=== PATIENT | female | born 1995 | race African-American/Black ===

== ENCOUNTER → 2017-01-19 | Outpatient (CLI) | payer OTHER | END | disposition home or self-care (01) | LOC: C.PAPS 16:00 | PROVIDERS: ATTEND Obstetrics & Gynecology | DX: Z12.4 Encounter for screening for malignant neoplasm of cervix (principal) ==

== ENCOUNTER → 2017-06-21 | Outpatient (CLI) | payer BC, OTHER ==
[2017-06-21 16:42] LABS: HEMATOCRIT 38.9 % (37-47); HEMOGLOBIN 13.1 g/dL (12.0-16.0)
== END | disposition home or self-care (01) ==
LOC: C.LAB 16:06
PROVIDERS: ATTEND Obstetrics & Gynecology
DX: N92.0 Excessive and frequent menstruation with regular cycle (principal)

== ENCOUNTER 2020-09-11 19:44 | Inpatient (IN) ==
[2020-09-11] MEDS ORDERED: LACTATED RINGER'S 1,000 ML IV PRN (20:09)
[2020-09-11] MEDS ORDERED: OXYTOCIN 30 UNITS/500 ML BAG IV PRN (20:09)
[2020-09-11 20:33] LABS: Hematocrit (blood only) 30.4 % (37-47); Hemoglobin 9.3 g/dL (12.0-16.0); Mean Corpuscular Hemoglobin 24.6 pg (25-34); Mean Corpuscular Hgb Conc 30.6 g/dL (32-36); Mean Corpuscular Volume 80.4 fL (80-100); Nucleated RBC # (auto) 0.07 K/uL (0-0); Nucleated RBC % (auto) 0.6 %; Platelet Count 212 K/uL (130-400); RDW Coefficient of Variation 15.5 % (11.5-14.5); RDW Standard Deviation 45.6 fL (36.4-46.3); Red Blood Count 3.78 M/uL (4.2-5.4); White Blood Count 12.72 K/uL (4.8-10.8)
[2020-09-11] MEDS ORDERED: SODIUM CHLORIDE 0.9% INJ 10 ML VIAL ONE (20:47)
[2020-09-11] MEDS ORDERED: BUPIVACAINE 0.25% 30 ML VIAL ONE (20:47)
[2020-09-11] MEDS ORDERED: ePHEDrine sulfate 50 MG/ML AMP ONE (20:47)
[2020-09-11] MEDS ORDERED: fentaNYL citrate 100 MCG/2 ML VIAL ONE (20:47)
[2020-09-11] MEDS ORDERED: fentaNYL 2MCG/ML ROPIVACAINE 1.25MG/ML 100 ML BAG EPI ONE (20:48)
--- NOTE | 2020-09-11 21:36 | Anesthesiology Consultation ---
Date of Service September 11, 2020 Assessment & Plan (1) Encounter for pre-operative examination: Chart Review Chart Review: Patient NOT seen in Pre Admission Testing and Acceptable Risk for Labor Epidural Consults Requested none ASA ASA2 Proposed Anesthesia Anesthesia Type: Labor Epidural Risk / Benefits Reviewed With: PT / POA / Parent / Guardian, Accepts Plan and Informed Consent Obtained History Height/Weight Height: 5 ft 8 in Weight: 91.172 kg Allergies Allergy/AdvReac Type Severity Reaction Status Date / Time No Known Allergies Allergy Unverified 04/03/20 13:25 Medications Active Medications Generic Name Dose Route Start Last Admin Trade Name Freq PRN Reason Stop Dose Admin Lactated Ringer's 1,000 mls @ 125 mls/hr 09/11/20 20:09 09/11/20 21:31 Lr IV 09/13/20 20:08 125 mls/hr .Q8H PRN Infusion L&D Protocol Protocol Past Medical History Medical History (Updated 09/11/20 @ 21:35 by Mina Huddleston MD) Miscarriage (~10/24/19) Exercise / Class Metabolic Activity II 4-5 Yardwork/Stairs/Walk up hill Past Anesthesia History No Hx of Anesthesia Complications and No Family Hx of Anesthesia Complications History of PONV No Hx of PONV and No Hx of Motion Sickness Social History Smoking Status: Never smoker Hx Alcohol Use: No Hx Substance Use: No substance use type: does not use Physical Exam Vital Signs Last Vital Signs Temp 37.0 C 09/11/20 19:49 Pulse 118 H 09/11/20 21:34 Resp 20 09/11/20 21:20 BP 111/60 09/11/20 21:34 Pulse Ox 99 09/11/20 21:30 ENMT Mouth: no dentition abnormality Thyromental Distance: > or= 3.5 Finger Breadths Mallampati Class: II Neck normal visual inspection Respiratory normal respiratory effort Auscultation: lungs clear to auscultation bilaterally Cardiovascular Rate/Rhythm: regular rate and regular rhythm Psychiatric Orientation: alert Testing Laboratory Results 09/11/20 20:19
[2020-09-11] MEDS ORDERED: NALOXONE HCL 0.4 MG/1 ML VIAL/CARP IV PRN (21:55)
[2020-09-11] MEDS ORDERED: NALOXONE HCL 1 MG in SODIUM CHLORIDE 0.9% 1000ML 1,000 ML IV PRN (21:55)
[2020-09-11] MEDS ORDERED: fentaNYL 2MCG/ML ROPIVACAINE 1.25MG/ML 100 ML BAG EPI PRN (21:55)
[2020-09-11] MEDS ORDERED: NALBUPHINE HCL INJ 10 MG/ML AMP IV PRN (21:55)
[2020-09-11] MEDS ORDERED: ePHEDrine sulfate 50 MG/ML AMP IV PRN (21:55)
[2020-09-11] MEDS ORDERED: diphenhydrAMINE 50 MG/ML VIAL IV PRN (21:55)
[2020-09-12] MEDS ORDERED: ACETAMINOPHEN W/CODEINE #3 1 TAB PO PRN (00:37)
[2020-09-12] MEDS ORDERED: oxyCODONE/ACETAMINOPHEN 5mg/325mg TAB PO PRN (00:37)
[2020-09-12] MEDS ORDERED: SUPERCREAM 0.870% 15 GM JAR EXT PRN (00:37)
[2020-09-12] MEDS ORDERED: bisacodyL 10 MG SUPP PR PRN (00:37)
[2020-09-12] MEDS ORDERED: ACETAMINOPHEN 325 MG TAB PO PRN (00:37)
[2020-09-12] MEDS ORDERED: HYDROCORTISONE ACETATE 25 MG SUPP PR PRN (00:37)
[2020-09-12] MEDS ORDERED: OXYTOCIN 30 UNITS/500 ML BAG IV PRN (00:37)
[2020-09-12] MEDS ORDERED: DIPHTHERIA/TETANUS/PERTUSSIS 0.5 ML SYR/VIAL IM ONE (00:37)
[2020-09-12] MEDS ORDERED: BENZOCAINE 20% AER SPR 82.5 GM CAN EXT PRN (00:37)
--- NOTE | 2020-09-12 02:06 | Delivery Summary ---
DELIVERY NOTE DATE OF DELIVERY: 09/11/2020 She is a 2, para 2, blood type is O positive. She was admitted at 39 weeks and 1 day in spon taneous labor. On admission, she was about 4 cm dilated with bulging membranes. She labored for a w hile and then decided to have epidural for pain control. She received an epidural. The epidural pro vided good pain relief. After things were stable, I ruptured the membrane surgically at about 7 cm. Fluid was clear. She then proceeded to have an unstimulated spontaneous labor, went to full dilatat ion, pushed out a live male infant in about three pushes, direct occiput anterior position. There wa s a nuchal cord, which had to be cut because it could not be reduced around the head and after it was clamped and cut the infant was delivered without difficulty. The infant had been suctioned through the mouth and the nose prior to delivery of the shoulders. Following this, cord blood was taken with IV Pitocin running. The placenta was removed intact. The b ladder was emptied with a red rubber Modi. There was a laceration of the right labia minora, which went into the vaginal mucosa. The defect was identified and it was approximated with a running 3-0 c hromic gut suture, which reapproximated the tissues and created good hemostasis. Then, there was ano ther perineal laceration at about 6 o'clock and this was also approximated with a running 3-0 chromic . Following this, inspection of the perineum revealed no lacerations, no bleeding. Uterus was firm and contracted. Estimated blood loss was 100 mL. Job ID: [id number]
[2020-09-12] MEDS: IBUPROFEN 600 MG TAB PO PRN ×4 (05:22→21:25)
[2020-09-12] MEDS: PRENATAL VITAMIN 1 TAB PO SCH (08:03)
[2020-09-12] MEDS: DOCUSATE SODIUM 100 MG CAP PO SCH ×2 (08:03→21:25)
--- NOTE | 2020-09-12 08:26 | Anesthesia Procedure Note ---
Date of Service September 12, 2020 Anesthesia Post Epidural Note Vital Signs Vital Signs: Temp Pulse Resp BP Pulse Ox 36.8 C 96 H 20 118/77 98 09/12/20 03:00 09/12/20 03:00 09/12/20 03:00 09/12/20 03:00 09/12/20 03:00 Pain Intensity Abdomen: Pain Intensity: 1 Notes Mental Status: alert / awake / arousable and participated in evaluation Nausea / Vomiting: adequately controlled Pain: adequately controlled Airway Patency, RR, SpO2: stable & adequate BP & HR: stable & adequate Hydration State: stable & adequate Neuraxial Anesthesia: was administered and sensory block is resolving Anesthetic Complications: no major complications apparent and Pt Satisfied with anesthetic care Epidural: Removed without complications and With tip intact
--- NOTE | 2020-09-12 11:51 | Obstetrical Progress Note ---
Date of Service September 12, 2020 Assessment & Plan Admission and Anticipated Discharge Date Admission Date: September 11, 2020 Subjective abdomen soft and non tender no calf tenderness ambulating well vaginal bleeding scant hgb 9.3 Results & Data ([facility]) Vital Signs (Past 12 Hours) Vital Signs Temp Pulse Pulse Resp BP BP Pulse Ox 09/12/20 07:45 36.8 C 96 H 18 133/79 09/12/20 03:00 36.8 C 96 H 20 118/77 98 09/12/20 02:42 114 H 138/71 09/12/20 02:40 18 09/12/20 02:29 113 H 131/75 09/12/20 02:19 114 H 123/77 09/12/20 02:10 18 09/12/20 02:09 114 H 121/70 09/12/20 01:59 104 H 132/75 09/12/20 01:49 108 H 18 136/83 09/12/20 01:39 110 H 139/73 09/12/20 01:35 102 H 141/64 H 09/12/20 01:29 125 H 182/106 H 09/12/20 01:25 18 09/12/20 01:19 113 H 168/80 H 09/12/20 01:10 123 H 18 187/70 H 09/12/20 01:07 106 H 115/82 09/12/20 00:55 18 09/12/20 00:52 120 H 173/81 H 09/12/20 00:40 36.9 C 18 09/12/20 00:39 115 H 136/73 09/12/20 00:35 117 H 100 09/12/20 00:30 125 H 99 09/12/20 00:25 121 H 98 09/12/20 00:20 124 H 99 09/12/20 00:15 146 H 100 09/12/20 00:13 162 H 175/74 H 09/12/20 00:10 134 H 100 09/12/20 00:05 117 H 99 09/12/20 00:00 107 H 99 09/11/20 23:57 101 H 114/57 L 09/11/20 23:55 100 H 100
[2020-09-12 17:55] VITALS: TEMP 98.1
[2020-09-13] MEDS: IBUPROFEN 600 MG TAB PO PRN ×2 (05:15→09:16)
[2020-09-13 06:17] LABS: Hematocrit (blood only) 29.4 % (37-47); Hemoglobin 8.9 g/dL (12.0-16.0); Mean Corpuscular Hemoglobin 24.5 pg (25-34); Mean Corpuscular Hgb Conc 30.3 g/dL (32-36); Mean Platelet Volume 12.8 fL (7.4-10.4); Platelet Count 199 K/uL (130-400); RDW Coefficient of Variation 15.9 % (11.5-14.5); RDW Standard Deviation 46.9 fL (36.4-46.3); Red Blood Count 3.63 M/uL (4.2-5.4); White Blood Count 14.26 K/uL (4.8-10.8)
[2020-09-13] MEDS: DOCUSATE SODIUM 100 MG CAP PO SCH (08:30)
[2020-09-13] MEDS: PRENATAL VITAMIN 1 TAB PO SCH (08:30)
--- NOTE | 2020-09-13 09:03 | Obstetrical Progress Note ---
Date of Service September 13, 2020 Assessment & Plan Admission and Anticipated Discharge Date Admission Date: September 11, 2020 Subjective abdomen soft and non tender no calf tenderness ambulating well vaginal bleeding scant hgb 8.9 Results & Data ([facility]) Vital Signs (Past 12 Hours) Vital Signs Temp Pulse Resp BP 09/13/20 00:05 36.7 C 73 18 119/76
[2020-09-13 09:36] VITALS: PULSE 75; O2SAT 100
[2020-09-13 09:47] VITALS: BP 119/76
[2020-09-13] MEDS ORDERED: bisacodyL 5 MG TABEC PO SCH (20:00)
== END 2020-09-13 10:48 | disposition home or self-care (01) | DRG 807 ==
LOC: OPB 19:44 → 4S1 19:46 → 4S2 09-12 03:13